=== PATIENT | female | born 1985 | race Two or more races ===

== ENCOUNTER 2020-05-14 06:30 | Inpatient (IN) | payer BC ==
[2020-05-14] MEDS ORDERED: TERBUTALINE 1 MG/ML VIAL SQ PRN (06:41)
[2020-05-14] MEDS ORDERED: OXYTOCIN 10 UNIT/ML 1 ML VIAL IM PRN (06:41)
[2020-05-14] MEDS ORDERED: CARBOPROST TROMETHAMINE 250 MCG/ML 1 ML AMP IM PRN (06:41)
[2020-05-14] MEDS ORDERED: LIDOCAINE 0.5% (PF) 5 MG/ML (50 ML SDV) SQ PRN (06:41)
[2020-05-14] MEDS ORDERED: METHYLERGONOVINE 0.2 MG/ML 1 ML AMP IM PRN (06:41)
[2020-05-14] MEDS: OXYTOCIN 30 UNITS/500 ML NS 30 UNIT in SALINE 1 500ML.BAG IV SCH (07:00)
[2020-05-14] MEDS: LACTATED RINGERS 1,000 ML IV SCH ×3 (07:00→23:33)
[2020-05-14 07:03] LABS: Anisocytosis Slight; Basophils % (A) 0 %; Eosinophils # (A) 0.1 k/uL (0-0.7); Eosinophils % (A) 2 %; HCT 31.5 % (34.0-46.0); HGB 9.5 gm/dL (11.4-16.0); Hypochromasia Marked; Lymphocytes # (A) 1.8 k/uL (1.0-4.8); Lymphocytes % (A) 23 %; MCH 22.4 pg (25.0-35.0); MCHC 30.1 g/dL (31.0-37.0); MCV 74.3 fL (80.0-100.0); Mean Platelet Volume 6.7; Microcytosis Slight; Monocytes # (A) 0.4 k/uL (0-1.0); Monocytes % (A) 5 %; Neutrophils # (A) 5.3 k/uL (1.3-7.7); Neutrophils % (A) 68 %; Platelet Count 278 k/uL (150-450); Poikilocytosis Slight; RBC 4.24 m/uL (3.80-5.40); RDW 16.9 % (11.5-15.5); WBC 7.8 k/uL (3.8-10.6)
[2020-05-14] MEDS ORDERED: BUTORPHANOL 1 MG/ML 1 ML VIAL IV PRN (09:50)
[2020-05-14] MEDS ORDERED: SIMETHICONE 80 MG CHEWABLE PO PRN (18:35)
[2020-05-14] MEDS ORDERED: HYDROCORTISONE 2.5% RECTAL CREAM 30 GM TUBE RECTAL PRN (18:35)
[2020-05-14] MEDS ORDERED: BENZOCAINE/MENTHOL SPRAY 1 GM/SPRAY AEROSOL TOPICAL PRN (18:35)
[2020-05-14] MEDS ORDERED: diphenhydrAMINE 25 MG CAP PO PRN (18:35)
[2020-05-14] MEDS ORDERED: HYDROcodone/APAP 7.5-325MG 1 EACH TAB PO PRN (18:35)
[2020-05-14] MEDS ORDERED: diphenhydrAMINE 50 MG CAP PO PRN (18:35)
[2020-05-14] MEDS ORDERED: ZOLPIDEM 5 MG TAB PO PRN (18:35)
[2020-05-14] MEDS ORDERED: LANOLIN CREAM 5 GM TUBE TOPICAL PRN (18:35)
[2020-05-14] MEDS ORDERED: HYDROcodone/APAP 5-325MG 1 EACH TAB PO PRN (18:35)
[2020-05-14] MEDS ORDERED: diphenhydrAMINE 50 MG/ML 1 ML VIAL IVP PRN ×2 (18:35)
[2020-05-14] MEDS ORDERED: WITCH HAZEL 1 EACH MED..PAD TOPICAL PRN (18:35)
--- NOTE | 2020-05-14 18:41 | P.HPOB ---
History of Present Illness H&P Date: 05/14/20 Chief Complaint: 40-3/7 weeks, induction of labor The patient is a 34-year-old 3 para 2 scissors or 2 admitted at 40-3/7 weeks as established by last menstrual period and confirmed by seven-week ultrasound. She is admitted for postdates induction of labor with all signs reassuring. Her has been entirely uncomplicated though she does fall into the category of advanced maternal age and declined trisomy testing. Group B strep status is negative. Obstetrical history: 3 para 2001 with 2 previous term vaginal deliveries without complications. Current statistics are listed in history present illness. EDC of 05/11/2020 was established by last menstrual period and confirmed by seven-week ultrasound. Laboratory workup done traits of blood type of A+ with a negative antibody screen. Rubella status is immune. Remainder of the laboratory workup was within normal limits. One hour Glucola was normal and group B strep status is negative. Gynecologic history: Unremarkable with no history of any infections to include STDs. Review of Systems Review of systems is confined to history of present illness. Past Medical History Past Medical History: Thyroid Disorder History of Any Multi-Drug Resistant Organisms: None Reported Past Surgical History: No Surgical Hx Reported Past Anesthesia/Blood Transfusion Reactions: No Reported Reaction Past Psychological History: No Psychological Hx Reported Smoking Status: Never smoker Past Alcohol Use History: None Reported Past Drug Use History: None Reported - Past Family History Mother Family Medical History: Thyroid Disorder Daughter(s) Additional Family Medical History / Comment(s): celiac disease Medications and Allergies Home Medications Medication Instructions Recorded Confirmed Type Levothyroxine Sodium [Synthroid] 1 tab PO DAILY 05/14/20 05/14/20 History Allergies Allergy/AdvReac Type Severity Reaction Status Date / Time No Known Allergies Allergy Verified 05/14/20 06:40 Exam Vital Signs Temp Pulse Resp BP 05/14/20 06:43 97.8 F 92 16 106/75 Intake and Output 05/14/20 05/14/20 05/14/20 06:59 14:59 22:59 Other: Weight 82.1 kg In general this is a well-developed well-nourished woman in no acute distress. Her heart has a regular rhythm and rate without murmur. Her lungs are clear to auscultation bilaterally in all bojorquez. Her abdomen is gravid, nondistended, has normal active bowel sounds, is soft, nontender, and without any palpable masses aside from uterine fundus. Her extremities are without any cyanosis, clubbing, or significant edema and are nontender to palpation bilaterally. Digital cervical examination at the time of admission demonstrates her cervix to be 2 cm dilated, 40% effaced, the vertex in presentation at -2-3 station. Artificial rupture of membranes is carried out demonstrating clear fluid. Results Result Diagrams: 05/14/20 06:44 Abnormal Lab Results - Last 24 Hours (Table) 05/14/20 Range/Units 06:44 Hgb 9.5 L (11.4-16.0) gm/dL Hct 31.5 L (34.0-46.0) % MCV 74.3 L (80.0-100.0) fL MCH 22.4 L (25.0-35.0) pg MCHC 30.1 L (31.0-37.0) g/dL RDW 16.9 H (11.5-15.5) % Assessment and Plan (1) Advanced maternal age (AMA) in Current Visit: Yes Status: Acute Code(s): VIA0155 - SNOMED Code(s): 856050494 (2) Post-dates Current Visit: Yes Status: Acute Code(s): O48.0 - POST-TERM SNOMED Code(s): 94176806 Plan: The patient is admitted for induction of labor. Artificial rupture of membranes has been carried out and Pitocin augmentation started. She will have close maternal and surveillance and expectant management will be practiced. She is a good candidate for either IV or epidural analgesia should she so choose. At this time she is requesting no pain medications.
--- NOTE | 2020-05-14 18:43 | P.PROBDLV ---
Vaginal Delivery Note - . Vaginal Delivery Note: The patient is a 34-year-old 3 para 2001 admitted for postdates induction of labor at 40-3/7 weeks by good dating parameters. She is admitted with all signs reassuring after an uncomplicated . She does fall into the category of advanced maternal age and declined trisomy testing. On labor and delivery, she had Pitocin started followed by artificial rupture of membranes demonstrating clear fluid. She made relatively slow progress through the latent phase of labor and then progressed fairly quickly from approximately 5 cm to complete. She pushed over the course of approximately 3 contractions to a normal spontaneous vaginal delivery of a viable 8 lbs. 12 oz. baby boy with Apgars of 9 at 1 minute and 9 at 5 minutes delivered in the left occiput anterior position. The placenta was delivered spontaneously, intact, and grossly normal with a grossly normal, centrally inserted three-vessel cord. There was a second-degree midline perineal laceration likely over the site of a previous laceration which was repaired in standard fashion using 3-0 chromic catgut without difficulty. Estimated blood loss for the entire case is a roughly 250 mL. There were no complications. All sponge, instrument, and needle counts were correct. Both mother and infant are resting comfortably in recovery.
[2020-05-14] MEDS ORDERED: OXYTOCIN 20 UNITS/1000 ML NS 1,000 ML IV SCH (18:45)
[2020-05-14] MEDS: IBUPROFEN 600 MG TAB PO PRN (18:59)
[2020-05-14] MEDS: SENNOSIDES-DOCUSATE SODIUM 1 EACH TAB PO SCH (21:01)
[2020-05-15] MEDS: IBUPROFEN 600 MG TAB PO PRN ×3 (00:17→15:57)
[2020-05-15 07:04] LABS: Anisocytosis Slight; Basophils % (A) 0 %; Eosinophils # (A) 0.1 k/uL (0-0.7); Eosinophils % (A) 0 %; HCT 27.2 % (34.0-46.0); HGB 8.4 gm/dL (11.4-16.0); Hypochromasia Marked; Lymphocytes # (A) 0.6 k/uL (1.0-4.8); Lymphocytes % (A) 3 %; MCHC 30.8 g/dL (31.0-37.0); MCV 74.5 fL (80.0-100.0); Mean Platelet Volume 7.3; Microcytosis Slight; Monocytes # (A) 0.3 k/uL (0-1.0); Monocytes % (A) 2 %; Neutrophils # (A) 15.4 k/uL (1.3-7.7); Neutrophils % (A) 94 %; Platelet Count 253 k/uL (150-450); Poikilocytosis Slight; RBC 3.65 m/uL (3.80-5.40); RDW 16.9 % (11.5-15.5); WBC 16.3 k/uL (3.8-10.6)
[2020-05-15] MEDS: SENNOSIDES-DOCUSATE SODIUM 1 EACH TAB PO SCH (07:28)
[2020-05-15] MEDS: OXYTOCIN 30 UNITS/500 ML NS 30 UNIT in SALINE 1 500ML.BAG IV SCH (08:18)
--- NOTE | 2020-05-15 09:03 | P.DS ---
Providers Date of admission: 05/14/20 06:30 Expected date of discharge: 05/15/20 Attending physician: Roger Crow Primary care physician: Stated None - Discharge Diagnosis(es) (1) Advanced maternal age (AMA) in Current Visit: Yes Status: Acute (2) Post-dates Current Visit: Yes Status: Acute (3) Normal spontaneous vaginal delivery Current Visit: Yes Status: Acute Hospital Course: The patient is a 34-year-old 3 para 2001 admitted at 40-3/7 weeks by good dating parameters perches admitted for induction of labor with all signs reassuring. Her was uncomplicated and group B strep status is negative. She did carry the diagnosis of advanced maternal age and declined testing. On labor and delivery, she had Pitocin started followed by artificial rupture of membranes for clear fluid. She progressed slowly through the latent phase of labor but then fairly quickly through the active phase of labor per she ultimately reached complete and then pushed to a normal spo ntaneous vaginal delivery of a viable 8 lbs. 12 oz. baby boy with Apgars of 9 at 1 minute and 9 at 5 minutes. Her course was unremarkable with vital signs remained stable and her temperature was afebrile throughout. She was deemed stable for discharge on day #1 was discharged home to follow- up in the office in 6 weeks' time routinely. Discharge instructions included calling for any significantly increased bleeding or foul-smelling lochia, significantly increased fever abdominal pain, perineal complaints, breast complaints, or anything else that concerned her. She was additionally instructed to have nothing in vagina for 6 weeks time to include intercourse. She understood her instructions and agrees to follow up as noted above. Discharge medications included continued vitamins as she has opted to breast-feed. She was otherwise to use [id number] analgesic pain medications as needed. Maternal blood type is A+ and rubella status is immune. Procedures: #1. Pitocin induction #2. Artificial rupture of membranes #3. Normal spontaneous vaginal delivery #4. Repair of perineal laceration Patient Condition at Discharge: Good Plan - Discharge Summary New Discharge Prescriptions: No Action Levothyroxine Sodium [Synthroid] 1 tab PO DAILY Discharge Medication List Levothyroxine Sodium [Synthroid] 1 tab PO DAILY 05/14/20 [History] Follow up Appointment(s)/Referral(s): Roger Crow MD [STAFF PHYSICIAN] - 6 Weeks Discharge Disposition: HOME SELF-CARE
[2020-05-15] MEDS: ACETAMINOPHEN TAB 325 MG TAB PO PRN ×2 (12:25→18:42)
[2020-05-15 15:46] VITALS: BP 116/73; PULSE 100; RESP 15; TEMP 98.3
== END 2020-05-15 18:35 | disposition home or self-care (01) | DRG 807 ==
LOC: 4FBP 06:30
PROVIDERS: ADMIT Obstetrics & Gynecology; ATTEND Obstetrics & Gynecology
PROC: 3E033VJ Introduction of Other Hormone into Peripheral Vein, Percutaneous Approach (ICD-10-PCS; principal; 2020-05-14)
PROC: 10E0XZZ Delivery of Products of Conception, External Approach (ICD-10-PCS; principal; 2020-05-14)
PROC: 10907ZC Drainage of Amniotic Fluid, Therapeutic from Products of Conception, Via Natural or Artificial Opening (ICD-10-PCS; principal; 2020-05-14)
PROC: 0KQM0ZZ Repair Perineum Muscle, Open Approach (ICD-10-PCS; principal; 2020-05-14)
DX: O48.0 Post-term pregnancy (principal); Z37.0 Single live birth; O70.1 Second degree perineal laceration during delivery; Z3A.40 40 weeks gestation of pregnancy; Z83.79 Family history of other diseases of the digestive system
CPT/HCPCS: 85025; 86850; 86900; 86901

== ENCOUNTER → 2020-08-30 | Outpatient (CLI) | payer BC | END | disposition home or self-care (01) | LOC: LABWHC1 14:23 | PROVIDERS: ATTEND Family Medicine | DX: Z03.89 Encounter for observation for other suspected diseases and conditions ruled out (principal) | CPT/HCPCS: U0003; C9803 ==

== ENCOUNTER 2023-04-21 06:41 | Inpatient (IN) | payer BC ==
[2023-04-21] MEDS ORDERED: METHYLERGONOVINE 0.2 MG/ML 1 ML AMP IM PRN (07:01)
[2023-04-21] MEDS ORDERED: LIDOCAINE 0.5% (PF) 5 MG/ML (50 ML SDV) SQ PRN (07:01)
[2023-04-21] MEDS ORDERED: OXYTOCIN 10 UNIT/ML 1 ML VIAL IM PRN (07:01)
[2023-04-21] MEDS ORDERED: CARBOPROST TROMETHAMINE 250 MCG/ML 1 ML AMP IM PRN (07:01)
[2023-04-21] MEDS ORDERED: TRANEXAMIC 1,000 MG/100ML-NACL 1,000 MG in EMPTY BAG 1 BAG IV PRN (07:01)
[2023-04-21] MEDS ORDERED: PENICILLIN G POTASSIUM 5,000,000 UNIT in DEXTROSE 5% IN WATER 100 ML IVPB STA ×2 (07:01)
[2023-04-21] MEDS ORDERED: TERBUTALINE 1 MG/ML VIAL SQ PRN (07:01)
[2023-04-21] MEDS ORDERED: miSOPROStoL 200 MCG TAB PO PRN (07:01)
[2023-04-21] MEDS ORDERED: OXYTOCIN 30 UNITS/500 ML NS 30 UNIT in SALINE 1 500ML.BAG IV SCH ×2 (07:15→14:45)
[2023-04-21] MEDS: LACTATED RINGERS 1,000 ML IV SCH ×2 (07:23→13:03)
[2023-04-21 07:33] LABS: Anisocytosis Slight; Basophils % (A) 1 %; Eosinophils # (A) 0.1 k/uL (0-0.7); Eosinophils % (A) 2 %; HCT 33.1 % (34.0-46.0); HGB 10.4 gm/dL (11.4-16.0); Hypochromasia Marked; Lymphocytes # (A) 1.6 k/uL (1.0-4.8); Lymphocytes % (A) 21 %; MCH 24.5 pg (25.0-35.0); MCHC 31.4 g/dL (31.0-37.0); Microcytosis Slight; Monocytes # (A) 0.3 k/uL (0-1.0); Monocytes % (A) 4 %; Neutrophils # (A) 5.4 k/uL (1.3-7.7); Neutrophils % (A) 71 %; Platelet Count 249 k/uL (150-450); RBC 4.25 m/uL (3.80-5.40); WBC 7.7 k/uL (3.8-10.6)
[2023-04-21] MEDS ORDERED: NALBUPHINE 10 MG/ML (10 ML MDV) IV PRN (08:29)
--- NOTE | 2023-04-21 08:35 | P.HPOB ---
History of Present Illness H&P Date: 04/21/23 Chief Complaint: 39-6/7 weeks, induction The patient is a 37-year-old 4 para 3003 admitted at 39-6/7 weeks as established by last menstrual period and confirmed by seven-week ultrasound. She is admitted for elective induction of labor with all signs reassuring. Her has been uncomplicated. She does fall into the category of advanced maternal age and declined trisomy testing. The fetus was found at her 20 week ultrasound to have somewhat ambiguous genitalia and was seen through maternal medicine after which time the issue. Be resolved with a male fetus. She otherwise is known to be group B strep positive. On labor and delivery, all signs are reassuring with a category 1 heart rate tracing. Obstetrical history: 4 para 3003 with 3 term vaginal deliveries without complications. Current statistics are listed in history of present illness. EDC of 04/22/2023 was established by last menstrual period and con firmed by seven-week ultrasound. Laboratory workup demonstrates a blood type of A+ with a negative antibody screen. Rubella status is immune. The remainder of the laboratory workup was within normal limits. Second trimester Glucola was normal and group B strep status is positive. Gynecologic history: Unremarkable with no history of any infections to include STDs. Review of Systems Review of systems is confined to history of present illness. Past Medical History Past Medical History: Thyroid Disorder History of Any Multi-Drug Resistant Organisms: None Reported Past Surgical History: No Surgical Hx Reported Past Anesthesia/Blood Transfusion Reactions: No Reported Reaction Past Psychological History: No Psychological Hx Reported Smoking Status: Never smoker Past Alcohol Use History: None Reported Past Drug Use History: None Reported - Past Family History Mother Family Medical History: Thyroid Disorder Daughter(s) Additional Family Medical History / Comment(s): celiac disease Medications and Allergies Home Medications Medication Instructions Recorded Confirmed Type Levothyroxine Sodium [Synthroid] 1 tab PO DAILY 05/14/20 05/14/20 History Allergies Allergy/AdvReac Type Severity Reaction Status Date / Time gluten Allergy Unknown Verified 04/21/23 06:59 Exam Intake and Output 04/20/23 04/21/23 04/21/23 22:59 06:59 14:59 Other: Weight 87.09 kg The patient is a well-developed well-nourished white female in no acute distress. Her heart has a regular rhythm and rate without murmur. Her lungs are clear to auscultation bilaterally in all bojorquez. Her abdomen is gravid, nondistended, has normal active bowel sounds, is soft, nontender, and without any palpable masses aside from uterine fundus. Her extremities are without any cyanosis, clubbing, or edema and are nontender to palpation bilaterally. Digital cervical examination demonstrates her cervix to be 2 cm dilated, approximate 40% effaced, the vertex in presentation at -2-3 station. Artificial rupture of membranes is carried out demonstrating clear fluid. Results Result Diagrams: 04/21/23 07:00 Abnormal Lab Results - Last 24 Hours (Table) 04/21/23 Range/Units 07:00 Hgb 10.4 L (11.4-16.0) gm/dL Hct 33.1 L (34.0-46.0) % MCV 78.0 L (80.0-100.0) fL MCH 24.5 L (25.0-35.0) pg RDW 17.0 H (11.5-15.5) % Assessment and Plan (1) Group B streptococcal infection in Current Visit: Yes Status: Acute Code(s): O98.819 - OTH MATERNAL INFEC/PARASTC DISEASES COMP PREG, UNSP TRI; B95.1 - STREPTOCOCCUS, GROUP B, CAUSING DISEASES CLASSD [id number] SNOMED Code(s): 392719673 (2) Term Current Visit: Yes Status: Acute Code(s): Z34.90 - ENCNTR FOR SUPRVSN OF NORMAL , UNSP, UNSP TRIMESTER SNOMED Code(s): 93509187 Plan: Pitocin augmentation has been started as well as antibody prophylaxis for group B strep. Artificial rupture of membranes has been carried out. The patient will continue to have close maternal and surveillance and expectant management will be practiced. She is a good candidate for IV or epidural analgesia should she choose. Anticipate normal spontaneous vaginal delivery likely this afternoon.
[2023-04-21] MEDS ORDERED: PENICILLIN G POTASSIUM 2,500,000 UNIT in DEXTROSE 5% IN WATER 100 ML IVPB SCH ×2 (12:00)
[2023-04-21] MEDS ORDERED: SIMETHICONE 80 MG CHEWABLE PO PRN (14:42)
[2023-04-21] MEDS ORDERED: BENZOCAINE/MENTHOL SPRAY 1 GM/SPRAY AEROSOL TOPICAL PRN (14:42)
[2023-04-21] MEDS ORDERED: HYDROcodone/APAP 5-325MG 1 EACH TAB PO PRN (14:42)
[2023-04-21] MEDS ORDERED: HYDROcodone/APAP 7.5-325MG 1 EACH TAB PO PRN (14:42)
[2023-04-21] MEDS ORDERED: diphenhydrAMINE 50 MG/ML 1 ML VIAL IVP PRN ×2 (14:42)
[2023-04-21] MEDS ORDERED: LANOLIN CREAM 5 GM TUBE TOPICAL PRN (14:42)
[2023-04-21] MEDS ORDERED: diphenhydrAMINE 50 MG CAP PO PRN (14:42)
[2023-04-21] MEDS ORDERED: HYDROCORTISONE 2.5% RECTAL CREAM 30 GM TUBE RECTAL PRN (14:42)
[2023-04-21] MEDS ORDERED: diphenhydrAMINE 25 MG CAP PO PRN (14:42)
[2023-04-21] MEDS ORDERED: ZOLPIDEM 5 MG TAB PO PRN (14:42)
--- NOTE | 2023-04-21 14:45 | P.PROBDLV ---
Vaginal Delivery Note - . Vaginal Delivery Note: The patient is a 37-year-old 4 para 3003 admitted at 39-6/7 weeks by good dating parameters. She is admitted for elective induction of labor with all signs reassuring, category 1 heart rate tracing. Her was uncomplicated. She fell into the category of advanced maternal age and declined trisomy testing. She otherwise was additionally group B strep positive. On labor and delivery, she had Pitocin started along with antibiotic prophylaxis for group B strep. She then underwent artificial rupture of membranes for clear fluid. She made steady progress through the latent phase into the active phase of labor and then progressed fairly quickly through the last portion of the active phase of labor to complete at which time she had significant urge to push and pushed over the course of 1 contraction to a normal spontaneous vaginal delivery in my absence by approximately 60 seconds of a viable 7 lbs. 4 oz. baby boy with Apgars of 9 at 1 minute and 9 at 5 minutes. The placenta was delivered spontaneously, intact, and grossly normal with a grossly normal three-vessel cord inserted approximate 3 cm from the margin of the placental disc. There were no significant lacerations the perineum, vagina, or cervix. Estimated blood loss for the case was approximate 200 mL. There were no complications aside from the precipitous nature of the delivery. All sponge, instrument, needle counts were correct. Both mother and are resting comfortably in recovery.
[2023-04-21] MEDS: IBUPROFEN 600 MG TAB PO PRN (15:19)
[2023-04-21] MEDS: SENNOSIDES-DOCUSATE SODIUM 1 EACH TAB PO SCH (19:43)
[2023-04-22] MEDS: IBUPROFEN 600 MG TAB PO PRN ×2 (00:22→08:18)
[2023-04-22 00:39] VITALS: RESP 16
[2023-04-22] MEDS: ACETAMINOPHEN TAB 325 MG TAB PO PRN ×2 (04:57→11:07)
[2023-04-22 07:18] LABS: Anisocytosis Slight; Basophils % (A) 1 %; Eosinophils # (A) 0.1 k/uL (0-0.7); Eosinophils % (A) 1 %; HCT 29.7 % (34.0-46.0); HGB 9.5 gm/dL (11.4-16.0); Hypochromasia Moderate; Lymphocytes # (A) 1.5 k/uL (1.0-4.8); Lymphocytes % (A) 17 %; MCH 25.1 pg (25.0-35.0); MCHC 31.8 g/dL (31.0-37.0); MCV 78.7 fL (80.0-100.0); Mean Platelet Volume 8.2; Microcytosis Slight; Monocytes # (A) 0.3 k/uL (0-1.0); Monocytes % (A) 4 %; Neutrophils # (A) 6.8 k/uL (1.3-7.7); Neutrophils % (A) 76 %; Platelet Count 227 k/uL (150-450); RBC 3.78 m/uL (3.80-5.40); RDW 17.5 % (11.5-15.5); WBC 8.9 k/uL (3.8-10.6)
[2023-04-22] MEDS: SENNOSIDES-DOCUSATE SODIUM 1 EACH TAB PO SCH (08:18)
[2023-04-22 08:25] VITALS: BP 118/50; PULSE 73; TEMP 97.9
--- NOTE | 2023-04-22 08:41 | P.DS ---
Providers Date of admission: 04/21/23 06:41 Expected date of discharge: 04/22/23 Attending physician: Roger Crow Primary care physician: Stated None - Discharge Diagnosis(es) (1) Group B streptococcal infection in Current Visit: Yes Status: Acute (2) Term Current Visit: Yes Status: Acute (3) Normal spontaneous vaginal delivery Current Visit: Yes Status: Acute Hospital Course: Patient is a 37-year-old 4 para 3003 admitted at 39-6/7 weeks by good dating parameters for an elective induction of labor. On labor and delivery, all signs were reassuring. Her was uncomplicated aside from advanced maternal age for which she declined trisomy testing. She additionally was known to be group B strep positive. Additionally, by 20 week ultrasound, she was found to have slightly ambiguous genitalia which ultimately were resolved into a male of phenotype with possible hypospadias. On labor and delivery, Pitocin was started along with antibiotic prophylaxis. She had artificial rupture of membranes for clear fluid. She made fairly consistent progress through the latent and active phases of labor and then quickly through the end of the active phase of labor to complete at which time she pushed precipitously to a normal spontaneous vaginal delivery in my absence of a viable 7 lbs. 4 oz. baby boy with Apgars of 9 at 1 minute and 9 at 5 minutes. Her course was unremarkable with vital signs remained stable and her temperature was afebrile throughout. She was deemed stable for discharge on day #1 and was discharged home to follow-up in the office in 6 weeks' time routinely. Discharge instructions included calling for any significantly increased bleeding or foul-smelling lochia, significantly increased fever abdominal pain, perineal complaints, breast complaints, or anything else that concerned her. She understood her instructions and agrees follow up as noted above. Discharge medications included continued vitamins as she has opted to breast- feed. She was otherwise to use [id number] analgesic pain medications and any other home medications that she desires. Maternal blood type is A+ and rubella status is immune. Procedures: #1. Pitocin induction #2. Antibiotic prophylaxis #3. Artificial rupture of membranes #4. Normal spontaneous vaginal delivery, precipitous Patient Condition at Discharge: Stable Plan - Discharge Summary New Discharge Prescriptions: No Action Levothyroxine Sodium [Synthroid] 125 mcg PO DAILY Discharge Medication List Levothyroxine Sodium [Synthroid] 125 mcg PO DAILY 04/21/23 [History] Follow up Appointment(s)/Referral(s): Roger Crow MD [STAFF PHYSICIAN] - 6 Weeks Discharge Disposition: HOME SELF-CARE
== END 2023-04-22 15:30 | disposition home or self-care (01) | DRG 807 ==
LOC: 4FBP 06:41
PROVIDERS: ADMIT Obstetrics & Gynecology; ATTEND Obstetrics & Gynecology
PROC: 10E0XZZ Delivery of Products of Conception, External Approach (ICD-10-PCS; principal; 2023-04-21)
PROC: 10907ZC Drainage of Amniotic Fluid, Therapeutic from Products of Conception, Via Natural or Artificial Opening (ICD-10-PCS; 2023-04-21)
PROC: 3E033VJ Introduction of Other Hormone into Peripheral Vein, Percutaneous Approach (ICD-10-PCS; 2023-04-21)
DX: O62.3 Precipitate labor (principal); Z37.0 Single live birth; O99.824 Streptococcus B carrier state complicating childbirth; Z83.79 Family history of other diseases of the digestive system; Z3A.39 39 weeks gestation of pregnancy
CPT/HCPCS: 85025; 86850; 86900; 86901

== ENCOUNTER → 2024-08-07 | Outpatient (CLI) | payer BC ==
--- NOTE | 2024-08-08 19:24 | MM ---
Reason for Exam: Screening (asymptomatic). Baseline mammogram. Patient History: Menarche at age 14. First Full-Term at age 22. Patient has history of breast feeding. Maternal grandmother had breast cancer. Last menstrual period: 08/04/2024 Risk Values: Xiomara 5 year model risk: 0.4%. NCI Lifetime model risk: 8.3%. Prior Study Comparison: Patient's first Mammogram. Tissue Density: The breasts are heterogeneously dense, which may obscure small masses. Findings: Analyzed By CAD. Benign intramammary lymph node right upper-outer quadrant. No persisting abnormality on 3-D images. No suspicious microcalcification or other discrete abnormality seen. Overall Assessment: Benign, BI-RAD 2 Management: Screening Mammogram of both breasts in 1 year. . Patient should continue monthly self-breast exams. A clinical breast exam by your physician is recommended on an annual basis. This exam should not preclude additional follow-up of suspicious palpable abnormalities. Note on Xiomara scores and lifetime risk: 1. A Xiomara score greater than 3% is considered moderate risk. If this is the case, consider specialist referral to assess eligibility for a risk reducing agent. 2. If overall lifetime risk for the development of breast cancer is 20% or higher, the patient may qualify for future screening with alternating mammogram and breast MRI. [facility], , 08/08/2024 7:21 PM. Electronically signed and approved by: Traci Hester M.D. Radiologist
== END | disposition home or self-care (01) ==
LOC: RADMAMWWP 09:33
PROVIDERS: ATTEND Obstetrics & Gynecology
CPT/HCPCS: 77063; 77067